=== PATIENT | female | born 1995 | race Caucasian/White ===

== ENCOUNTER 2025-08-01 08:48 | Outpatient (CLI) | payer OTHER, SELFPAY | END 2025-08-01 08:49 | disposition home or self-care (01) | LOC: NFLDREF 08-03 14:10 | PROVIDERS: Visit Provider Family Medicine | DX: Z00.00 Encounter for general adult medical examination without abnormal findings (principal); Z13.29 Encounter for screening for other suspected endocrine disorder; Z13.6 Encounter for screening for cardiovascular disorders | CPT/HCPCS: 80053; 80061; 84443 ==